=== PATIENT | male | born 1955 | race Caucasian/White ===

== ENCOUNTER 2017-02-02 11:45 | Emergency (ER) | payer BC ==
[2017-02-02] MEDS ORDERED: diPHENhydraMINE IV* 50 MG/ML 1 ml VIAL (BENADRYL) IV ONE (14:26)
[2017-02-02] MEDS ORDERED: Ketorolac INJ* 30 MG/ML 1 ML VIAL IV PUSH ONE (14:26)
--- NOTE | 2017-02-02 14:26 | ED ---
Headache - HPI Summary HPI Summary: 61 male presents to ED with complaints of headache that has been ongoing since Wednesday01/29/17. Patient states it was a sudden onset. Is relieved by ibuprofen/ tylenol to a 3/10 however when it beings to wear off pain returns to 8/10. Patient went to [facility] urgent care prior to arrival and was sent here for further work up. Patient has been eating and drinking normally. Denies vomiting. Admits to some blurred vision that began last night and last until this morning. Spontaneously resolved after taking tylenol this morning and had pain relief. Denies vision loss. No trauma or injury. No known tick bites. Denies rash, other joint pain, stiff neck, fever/chills or recent illness. PMHx significant for [place] and HTN. Never had headaches this bad and persistent in the past. No other complaints at this time. Denies numbness/tingling, lightheadedness and weakness. 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 Admits to alcohol use. Denies slurred speech, lethargy, or altered mental status. - History Of Current Complaint Chief Complaint: EDEyeProblem Stated Complaint: EYE PROBLEM/HEADACHE,COMING FROM [facility] Time Seen by Provider: 02/02/17 14:00 Hx Obtained From: Patient Onset/Duration: Sudden Onset, Started days ago, Still Present, Worse Since Initially Headache Was: Initial Pain Scale(0-10)= - 8, Moderate Currently Pain Is: Severe Timing: Constant Character: Sharp, Throbbing Location of Headache: Occipital Aggravating Factor: Nothing Allevating Factors: Medication - OTC ibuprofen/tylenol Associated Signs And Symptoms: Visual Changes - blurred, resolved - Risk Factors SAH Risk Factors: Hypertension, Alcohol Abuse Meningitis Risk Factors: Negative, Alcohol Abuse SDH Risk Factors: Male Temporal Arteritis Risk Factors: , Greater Than 60 Years Old - Allergies/Home Medications Allergies/Adverse Reactions: Allergies Allergy/AdvReac Type Severity Reaction Status Date / Time No Known Allergies Allergy Verified 02/02/17 12:03 PMH/Surg Hx/FS Hx/Imm Hx Endocrine/Hematology History: Denies: Hx Diabetes Cardiovascular History: Reports: Hx Hypertension, Hx Myocardial Infarction Sensory History: Reports: Hx Contacts or Glasses Opthamlomology History: Reports: Hx Contacts or Glasses - Surgical History Surgery Procedure, Year, and Place: n/a - Immunization History Immunizations Up to Date: Yes Infectious Disease History: No Infectious Disease History: Denies: Traveled Outside the [place] in Last 30 Days - Family History Known Family History: Positive: None - Social History Alcohol Use: Daily Alcohol Amount: 1shot/day Substance Use Type: Reports: None Smoking Status (MU): Former Smoker Review of Systems Constitutional: Negative Positive: Blurred Vision ENT: Negative Cardiovascular: Negative Respiratory: Negative Gastrointestinal: Negative Musculoskeletal: Negative Skin: Negative Positive: Headache All Other Systems Reviewed And Are Negative: Yes Physical Exam Triage Information Reviewed: Yes Vital Signs On Initial Exam: Initial Vitals Temp Pulse Resp BP Pulse Ox 98.4 F 66 16 173/91 98 02/02/17 12:02 02/02/17 12:02 02/02/17 12:02 02/02/17 12:02 02/02/17 12:02 133/94 improved throughout visit and when pain was decreased. patient took HTN medication today however was in severe pain Vital Signs Reviewed: Yes Appearance: Positive: Well-Appearing, No Pain Distress, Well-Nourished Skin: Positive: Warm, Dry. Negative: Cold, Numb, Soft, Cyanosis @, Pale, Erythema @ Head/Face: Positive: Normal Head/Face Inspection. Negative: Temporal Artery Tenderness, TMJ Tenderness Eyes: Positive: Normal, EOMI, RACHNA, Conjunctiva Clear, Other: - fundoscopic exam no sufficient due to miosis. Negative: Conjunctiva Inflammed, Discharge ENT: Positive: Normal ENT inspection, Hearing grossly normal, Pharynx normal, TMs normal Neck: Positive: Supple, Nontender Respiratory/Lung Sounds: Positive: Clear to Auscultation, Breath Sounds Present. Negative: Rales, Rhonchi, Wheezes Cardiovascular: Positive: Normal, RRR, Pulses are Symmetrical in both Upper and Lower Extremities, Other - carotid bruits not appreciated. Negative: Murmur, Rub, Leg Edema Left, Leg Edema Right Abdomen Description: Positive: Nontender, No Organomegaly, Soft. Negative: Bruit, CVA Tenderness (R), CVA Tenderness (L), Distended, Peritoneal Signs Bowel Sounds: Positive: Present Musculoskeletal: Positive: Normal, Strength/ROM Intact. Negative: Pain @ Neurological: Positive: Normal - neuro exam normal, Sensory/Motor Intact, Alert , Oriented to Person Place, Time, CN Intact II-III, Reflexes Intact, NV Bundle Intact Distally, Normal Gait, Finger to Nose - normal, Facial Symmetry, Speech Normal. Negative: Receptive Aphasia, Expressive Aphasia, Cerebellar Dysfunction Psychiatric: Positive: Normal - [place] Coma Scale Best Eye Response: 4 - Spontaneous Best Motor Response: 6 - Obeys Commands Best Verbal Response: 5 - Oriented Coma Scale Total: 15 Diagnostics - Vital Signs Vital Signs Temp Pulse Resp BP Pulse Ox 02/02/17 14:00 68 139/93 97 02/02/17 13:30 63 96 02/02/17 13:00 65 133/94 99 02/02/17 12:57 146/87 02/02/17 12:53 69 96 02/02/17 12:30 65 130/83 95 02/02/17 12:15 65 10 97 02/02/17 12:13 152/82 02/02/17 12:02 98.4 F 66 16 173/91 98 - Laboratory Result Diagrams: 02/02/17 14:30 02/02/17 14:30 Lab Statement: Any lab studies that have been ordered have been reviewed, and results considered in the medical decision making process. - CT brain CT Interpretation: No Acute Changes - no acuate intracranial pathology CT Interpretation Completed By: Radiologist Re-Evaluation - Re-Evaluation First Eval Re-Evaluation Time: 16:00 Change: Improved - had significant imprvement after medication administered. updated on lab and imaging results Headache Course/Dx - Course Course Of Treatment: given fluids, toradol and benadryl. had significant relief. labs and electrolytes obtained and unremarkable besides slightly anemic. CT brain obtained due to HPI and severity of symptoms, unremarkable. No concern for polymalgia rheumatica or temporal arteritis due to HPI and PE findings. Does not appear to be suffering from an infection. Recommended iron rich foods. Lyme serology obtained, pending results although no specific history or PE findings. No neck stiffness. Possibly related to vision and not wearing appropriate glasses. Appears to be suffering form migraine although unlikely to rule out other etiologies. Aware of worsening signs and symptoms to watch out for and to return immediately if occur. Normal neuro exam. Otherwise healthy. Does not appear to be an emergent need for CTA or MRI at this time however due to complaint of symptoms, spoke with Dr Garcia neurologist who suggested follow up in office and no further imaging or labwork required at this time. Agrees with plan. Tramadol and tylenol/ibuprofen at home with fluids and food. Rest. - Diagnoses Differential Diagnosis/HQI/PQRI: Migraine, Sinus Headache, Tension Headache, Other - tumor Provider Diagnoses: Headache - Physician Notifications Discussed Care Of Patient With: Dr Garcia Time Discussed With Above Provider: 16:45 Instructed by Provider To: Have Pt Call For Appt. Discharge - Discharge Plan Condition: Stable Disposition: HOME Prescriptions: traMADol TAB* [Ultram*] 50 mg PO Q6HR PRN #15 tab MDD 3 PRN Reason: Pain Patient Education Materials: Acute Headache (ED), Tramadol (By mouth) Referrals: Gerber Bobo MD [Primary Care Provider] - Additional Instructions: Continue use of ibuprofen/tylenol as directed, 600mg every 6-8 hours only as needed. With food. Tramadol for break through pain in between doses. Do not drive while taking this medication. Increase fluid intake, rest and continue hypertension medication. Diminish light stimulating activities. You will hear about pending lyme results, if positive in a few days. If symptoms worsen (as discussed) or new symptoms develop please return and seek medical attention immediately. Follow up with PCP and Neurology for further imaging and evaluation.
[2017-02-02] MEDS ORDERED: Ketorolac INJ* 30 MG/ML 1 ML VIAL ONE (14:27)
[2017-02-02] MEDS ORDERED: diPHENhydraMINE IV* 50 MG/ML 1 ml VIAL (BENADRYL) ONE (14:28)
[2017-02-02] MEDS: NS 0.9% 1000 ML* 2,000 ML IV ONE (14:38)
[2017-02-02 14:45] LABS: Hematocrit 40 % (42-52); Hemoglobin 13.6 g/dl (14.0-18.0); Mean Corpuscular HGB Conc 34 g/dl (31-36); Mean Corpuscular Hemoglobin 32 pg (27-31); Mean Corpuscular Volume 93 fL (80-94); Mean Platelet Volume 9 um3 (7.4-10.4); Red Blood Count 4.29 10^6/ul (4.0-5.4); Red Cell Distribution Width 13 % (10.5-15); White Blood Count 8.8 10^3/ul (3.5-10.8)
[2017-02-02 14:47] LABS: Comments Flag Yes
[2017-02-02 14:59] LABS: Albumin 3.8 g/dL (3.2-5.2); BUN/Creatinine Ratio 10.9 (8-20); Calcium 8.9 mg/dL (8.6-10.3); EGFR African American 107.6 (>60); EGFR Non-African American 83.6 (>60); Globulin 2.8 g/dL (2-4); Magnesium 1.9 mg/dL (1.9-2.7); Potassium 3.7 mmol/L (3.5-5.0); Total Bilirubin 0.4 mg/dL (0.2-1.0); Total Protein 6.6 g/dL (6.4-8.9)
[2017-02-02 15:27] LABS: Urine Bilirubin Negative (Negative); Urine Glucose Negative (Negative); Urine Nitrite Negative (Negative)
--- NOTE | 2017-02-02 15:39 | RAD ---
HISTORY: Headache, blurred vision COMPARISONS: None TECHNIQUE: Multiple contiguous axial CT scans were obtained of the head without intravenous contrast. FINDINGS: HEMORRHAGE/INFARCT: There is no hemorrhage or acute infarct. MASSES/SHIFT: There is no mass or shift. EXTRA-AXIAL SPACES: There are no extra-axial fluid collections. SULCI AND VENTRICLES: The sulci and ventricles are normal in size and position for the patient's stated age. CEREBRUM: There are no focal parenchymal abnormalities. A small dilated perivascular spaces noted in the right BRAINSTEM: There are no focal parenchymal abnormalities. CEREBELLUM: There are no focal parenchymal abnormalities. VESSELS: The vessels are grossly normal. PARANASAL SINUSES: The paranasal sinuses are clear. ORBITS: The orbits are unremarkable. BONES AND SOFT TISSUE: No bone or soft tissue abnormalities are noted. OTHER: None IMPRESSION: NO ACUTE INTRACRANIAL PATHOLOGY.
[2017-02-02 16:41] LABS: Erythrocyte Sed Rate 12 mm/Hr (0-20)
[2017-02-02 17:29] VITALS: BP 126/89
== END 2017-02-02 17:30 | disposition home or self-care (01) ==
LOC: ED 11:45
DX: R51 Headache (principal); I10 Essential (primary) hypertension; I25.2 Old myocardial infarction; Z87.891 Personal history of nicotine dependence
CPT/HCPCS: 36415; 70450; 80053; 81003; 83605; 83735; 85025; 85652; 86618; 96360; 96374; 96375; 99283; J1200; J1885